=== PATIENT | male | born 1955 ===

== ENCOUNTER 2021-04-20 11:52 | Emergency (ER) | payer OTHER ==
--- NOTE | 2021-04-20 12:51 | EDM.PDOC ---
ED HPI GENERAL MEDICAL PROBLEM - General Chief Complaint: General Stated Complaint: left sided facial weakness/drouping Time Seen by Provider: 04/20/21 12:00 Source of Information: Reports: Patient, Family History Limitations: Reports: No Limitations - History of Present Illness INITIAL COMMENTS - FREE TEXT/NARRATIVE: Patient presented to the ED because of a left sided facial droop and ptosis which he noticed 2 days ago. there is no motor or sensory deficits, no slurred speech, double or blurry vision. Left Neck Pain Score (Numeric/FACES): 5 - Related Data Allergies Allergy/AdvReac Type Severity Reaction Status Date / Time No Known Allergies Allergy Verified 01/08/14 20:32 Home Meds: Home Meds Aspirin 325 mg PO BEDTIME 01/08/14 [History] Atenolol [Tenormin] 50 mg PO BEDTIME 01/08/14 [History] Lisinopril 10 mg PO BEDTIME 01/08/14 [History] atorvaSTATin [Lipitor] 10 mg PO BEDTIME 01/08/14 [History] Citalopram [Citalopram HBr] 20 mg PO DAILY #30 01/09/14 [Rx] Acyclovir 400 mg PO TID #30 tablet 04/20/21 [Rx] predniSONE [Prednisone] 20 mg PO DAILY #10 tablet 04/20/21 [Rx] ED ROS GENERAL - Review of Systems Review Of Systems: See Below Constitutional: Reports: No Symptoms HEENT: Reports: No Symptoms Respiratory: Reports: No Symptoms Cardiovascular: Reports: No Symptoms Endocrine: Reports: No Symptoms GI/Abdominal: Reports: No Symptoms : Reports: No Symptoms Musculoskeletal: Reports: No Symptoms Skin: Reports: No Symptoms Neurological: Reports: No Symptoms Psychiatric: Reports: No Symptoms Hematologic/Lymphatic: Reports: No Symptoms Immunologic: Reports: No Symptoms ED EXAM, GENERAL - Physical Exam Exam: See Below Exam Limited By: No Limitations General Appearance: Alert, No Apparent Distress Eye Exam: Bilateral Eye: PERRL Ears: Normal External Exam, Normal Canal Nose: Normal Inspection, Normal Mucosa, No Blood Throat/Mouth: Normal Inspection, Normal Lips, Normal Teeth Head: Atraumatic, Normocephalic Neck: Normal Inspection, Supple, Non-Tender, Full Range of Motion Respiratory/Chest: No Respiratory Distress, Lungs Clear, Normal Breath Sounds, No Accessory Muscle Use, Chest Non-Tender Cardiovascular: Normal Peripheral Pulses, Regular Rate, Rhythm, No Edema, No Gallop, No JVD, No Murmur, No Rub GI/Abdominal: Normal Bowel Sounds, Soft, Non-Tender, No Organomegaly, No Distention, No Abnormal Bruit, No Mass Back Exam: Normal Inspection, Full Range of Motion Extremities: Normal Inspection, Normal Range of Motion, Non-Tender Neurological: Alert, Oriented, CN II-XII Intact, Normal Cognition, Other (Left facial droop and Ptosis) Course - Vital Signs Last Recorded V/S: Last Vital Signs Temp 36.6 C 04/20/21 11:53 Pulse 48 L 04/20/21 11:53 Resp 18 04/20/21 11:53 BP 140/87 04/20/21 11:53 Pulse Ox 94 L 04/20/21 11:53 Departure - Departure Time of Disposition: 12:50 Disposition: Home, Self-Care 01 Condition: Good Clinical Impression: John's palsy - Discharge Information Prescriptions: Acyclovir 400 mg PO TID #30 tablet predniSONE [Prednisone] 20 mg PO DAILY #10 tablet Instructions: John Palsy, Adult Referrals: En Kinney MD [Primary Care Provider] - Forms: ED Department Discharge Additional Instructions: Please read discharge instructions on John's Palsy Prednisone 20 mg daily for 10 days Acyclovir 400 mg 3 times daily for 10 days Follow up after 10 days if symptoms gets worse. Sepsis Event Note (ED) - Focused Exam Vital Signs: Vital Signs Temp Pulse Resp BP Pulse Ox 04/20/21 11:53 36.6 C 48 L 18 140/87 94 L
== END 2021-04-20 13:00 | disposition home or self-care (01) ==
LOC: FB.ED 11:52 → SUPCPDRO 11:52 → FB.ED 13:00
DX: G51.0 Bell's palsy (principal); Z79.82 Long term (current) use of aspirin; Z79.899 Other long term (current) drug therapy
CPT/HCPCS: 99283